=== PATIENT | male | born 1980 | race Caucasian/White ===

== ENCOUNTER 2018-04-19 20:32 | Emergency (ER) | payer OTHER, MEDICARE ==
[~2018-04-19] VITALS: Ht 182.9 cm; Wt 120.2 kg
[~2018-04-19 20:32] MED LIST: COLACE100 M1 PO; CYMBALTA60 M1 PO; MARI INH; NEXIUM40 M1 PO; OXYCODONE HCL30 M1 PO; OXYCONTIN60 M1 PO; PEPCID20 M1 PO; PROCHLORPERAZIN10 MG PO; RW; TIZANIDINE HCL4 M1 PO; XANAX1 M1 PO; XTAMPZA ER36 MG PO
--- NOTE | 2018-04-19 21:26 | ED GENERAL ADULT ---
History of Present Illness General Chief Complaint: General Adult Stated Complaint: "I WAS STUNG BY A BEE SUNDAY AND MY LEG SWOLLEN Source: patient Exam Limitations: no limitations Vital Signs & Intake/Output Vital Signs & Intake/Output Vital Signs Date Time Temp Pulse Resp B/P B/P Pulse O2 O2 Flow FiO2 Mean Ox Delivery Rate 04/19 2241 97.6 118 18 122/84 98 Room Air 04/19 2045 100.7 128 20 137/89 98 Room Air ED Intake and Output 04/20 0000 04/19 1200 Intake Total Output Total Balance Patient 265 lb Weight Weight Reported by Patient Measurement Method Allergies Coded Allergies: Penicillins (U 05/28/17) Sulfa (Sulfonamide Antibiotics) (UNKNOWN 05/28/17) cephalexin (UNKNOWN 05/28/17) theophylline (UNKNOWN 05/28/17) NSAIDS (Non-Steroidal Anti-Inflamma (Intermediate, PEPTIC ULCER DISEASE 05/28/17 ) prednisone (Intermediate, PEPTIC ULCER DISEASE 05/28/17) Reconcile Medications Cannabis (Marijuana Oil) 1 amp AMP 1 A INH PAIN (Reported) Docusate Sodium (Colace) 100 MG CAPSULE 1 CAP PO BID PRN CONSTIPATION hold for loose stool Esomeprazole (Nexium) 40 MG CAPSULE.DR 1 CAP PO DAILY PUD / GERD (Reported) Famotidine (Pepcid) 20 MG TABLET 1 TAB PO BID PRN GERD (Reported) Oxycodone HCl 30 MG TABLET 1 TAB PO Q3 PRN FIBROMYALGIA / PAIN chronic pain medication, until he can be seen on sunday by his usual prescribing physician Oxycodone Myristate (Xtampza ER) 36 MG CAP.SPR.12 1 CAP PO Q12 chronic pain control (Reported) Tizanidine HCl 4 MG TABLET 1 TAB PO TID MUSCLE RELAXER (Reported) Triage Note: PT HERE WITH MULTIPLE COMPLAINTS. PT REPORTS HE WAS TUNG BY A BEE ON SUNDAY ON HIS EFT POINTERR FINGER AND IT IS STILL SWOLEEN. PT REPORTS HE WENT TO HIS PMD TODAY AND WAS PUT ON PREDNISONE ,INHALER AND ZYRTEC. PT REPORTS THAT HE NOTICED HIS LEGS ARE BECOMING SWOLLEN AND THAT HIS GRION AREA IS MORE SWOLLLEN THAN USUAL. Triage Nurses Notes Reviewed? yes Onset: Abrupt Duration: day(s): Timing: recent history Injury Environment: home HPI: 37-year-old male comes into emergency room for further evaluation of multiple complaints. Patient reports that 2 days ago this past Sunday he was stung by a bee in his left hand. He reports that he went to the walk-in clinic earlier today. He was having some associated wheezing. He was started on prednisone. He reports now has swelling to his right leg down onto his abdomen. Feels weak. (Mj Boogie) Past History Travel History Traveled to [place] past 21 day No Medical History Any Pertinent Medical History? see below for history Neurological: UNSPECIFIED CONNECTIVE TISSUE DISORDER EENT: NONE Cardiovascular: NONE Respiratory: NONE Gastrointestinal: GERD, PEPTIC ULCER DISEAS GASTROPARESIS (on narcs) Hepatic: cholelithiasis (prob incidental), fatty liver Renal: NONE Musculoskeletal: chronic back pain, fibromyalgia, chronic pain syndrome Psychiatric: anxiety, opioid dependence Endocrine: obesity Blood Disorders: NONE Cancer(s): NONE UI UX ENGINEER/Reproductive: NONE History of MRSA: No History of VRE: No History of CDIFF: No Surgical History Surgical History: non-contributory Psychosocial History Services at Home None What is your primary language Ecuadorean Tobacco Use: Current Daily Use Daily Tobacco Use Amount/Type: =< 4 Cigarettes daily ETOH Use: denies use Illicit Drug Use: denies illicit drug use Family History Family History, If Any: MOTHER (*Hx GBD, PUD, GERD). , Age 63; Cause: Cancer of unknown origin. FATHER (in SNF with debilitating neurologic condition; *hx PUD & GERD). Age 73. Hx Contributory? No (Mj Boogie) Review of Systems Review of Systems Constitutional: Reports: see HPI. EENTM: Reports: no symptoms. Respiratory: Reports: no symptoms. Cardiovascular: Reports: no symptoms. GI: Reports: no symptoms. Genitourinary: Reports: no symptoms. Musculoskeletal: Reports: see HPI. Skin: Reports: see HPI. Neurological/Psychological: Reports: no symptoms. Hematologic/Endocrine: Reports: no symptoms. Immunologic/Allergic: Reports: see HPI. All Other Systems: Reviewed and Negative (Mj Boogie) Physical Exam Physical Exam General Appearance: well developed/nourished, no apparent distress, alert, awake Head: atraumatic, normal appearance Eyes: Bilateral: normal appearance. Ears, Nose, Throat: normal ENT inspection, hearing grossly normal Neck: normal inspection Respiratory: no respiratory distress, wheezing Cardiovascular: regular rate/rhythm Gastrointestinal: soft, non-tender, NO SWELLING APPRECIATED IN GENITALIA Back: normal inspection Extremities: normal inspection, normal range of motion, no edema, NO APPRECIABLE DIFFERENCE IN SWELLING TO BILATERAL LEGS, NO ERYTHEMA, NO WARMTH, Neurologic/Psych: awake, alert, oriented x 3, normal gait Skin: intact, normal color Core Measures ACS in differential dx? No CVA/TIA Diagnosis: No Sepsis Present: No Sepsis Focused Exam Completed? No (Nael HOWARD,Mj) Progress Differential Diagnoses I considered the following diagnoses in my evaluation of the patient: DVT, allergic reaction, kidney failure, liver failure, Plan of Care: Orders Procedure Date/time Status US-UNILATERAL VENOUS DOPPLER 04/19 2118 Active COMPREHENSIVE METABOLIC PANEL 04/19 2118 Complete CBC WITHOUT DIFFERENTIAL 04/19 2118 Complete Laboratory Tests 04/19/182133: CBC w Diff NO MAN DIFF REQ, RBC 4.77, MCV 84.6, MCH 28.4, MCHC 33.6, RDW 14.4, MPV 7.5, Gran % 88.5 H, Lymphocytes % 8.5 L, Monocytes % 2.4, Eosinophils % 0.3, Basophils % 0.3, Absolute Granulocytes 8.3 H, Absolute Lymphocytes 0.8 L, Absolute Monocytes 0.2, Absolute Eosinophils 0, Absolute Basophils 0 04/19/182130: Anion Gap 9, Estimated GFR > 60, BUN/Creatinine Ratio 13.3, Glucose 134 H, Calcium 9.2, Total Bilirubin 0.3, AST 48, ALT 88 H, Alkaline Phosphatase 88, Total Protein 7.3, Albumin 4.4, Globulin 2.9, Albumin/Globulin Ratio 1.5 Diagnostic Imaging: Viewed by Me: Radiology Read. Discussed w/RAD: Radiology Read. Radiology Impression: PATIENT: JUNIOR DÍAZ PRESENT AGE: 37 PATIENT ACCOUNT NO: [id number] : 80 LOCATION: [facility] ORDERING PHYSICIAN: Mj HOWARD SERVICE DATE: 04/19/18-2117 EXAM TYPE : RAD - XRY-CHEST XRAY, TWO VIEWS EXAMINATION: XR CHEST CLINICAL INFORMATION: Cough and wheezing COMPARISON: None TECHNIQUE: 2 views of the chest were obtained. FINDINGS: No significant abnormality is noted involving the heart, lungs, mediastinum, bony thorax or soft tissues. IMPRESSION: Unremarkable examination. DICTATED BY: Joseph Lozano MD DATE/TIME DICTATED:04/19/182143 CAMERA ENGINEER:NORM DATE/TIME TRANSCRIBED:04/19/182143 CONFIDENTIAL, DO NOT COPY WITHOUT APPROPRIATE AUTHORIZATION. <Electronically signed in Other Vendor System> SIGNED BY: Joseph Lozano MD 04/19/182148 Initial ED EKG: none (Nael HOWARD,Mj) Departure Departure Disposition: HOME OR SELF CARE Condition: Stable Clinical Impression Primary Impression: Right leg swelling Referrals: Joseph De La Cruz MD (PCP/Family) Additional Instructions: Follow-up with her general practitioner Sunday. Call Central scheduling for outpatient ultrasound. Return if any concerns worsening symptoms. Please go over all results of today's visit with your primary care doctor. Contact your primary care doctor to let them know you were here in the emergency room. There may be nonspecific findings which may not be related to your visit today here in the emergency room but may require further evaluation and chronic monitoring by your primary care doctor. If you had a laceration today the chance of foreign body always remains. You should follow-up with your primary care doctor for recheck in 3-5 days for a wound check. If you had an x-ray done there is a chance that a fracture could have been missed on initial read and you should follow-up with your primary care doctor for repeat x-rays if symptoms persist. If your blood pressure was elevated here in the emergency room please have rechecked by [facility] primary care doctor within the next 48. If you were prescribed a narcotic here in the emergency room or any type of controlled substances you're not allowed to drive while taking this medication or operate any type of heavy machinery. Narcotics can make you feel lightheaded dizziness nausea and can cause constipation. You may need to nut picker a stool softener. Thank you for choosing [facility] emergency room. Please return to the emergency room immediately if you have any other concerns worsening of symptoms. Departure Forms: Customer Survey General Discharge Information Comments 04/19/2018 11:48:30 PM Patient clinically looks well. In no apparent distress. Nontoxic-appearing. Patient complains of swelling but there is no visible swelling that I can appreciate is different. Blood work within normal limits. An ultrasound had been ordered on the patient's right leg however ultrasound left without doing the order. THEY were contacted but still left. Ultrasound was ordered at 9:18 PM. Patient was given a slip for outpatient ultrasound. Due to the fact that I cannot see any visible swelling on exam I feel that is reasonable for the patient to wait until tomorrow. Return if any other concerns worsening symptoms. He does not appear to have any signs of anaphylactic shock. Do not feel that there is any correlation with the bee sting. Some mild wheezing on exam but patient has a history of asthma and is a smoker. He is in no respiratory distress. No tongue swelling. Clinically there is no signs of infection. Patient had a low-grade temp on he came in but repeat temperature was normal. (Mj Boogie) PA/DETAILER Co-Sign Statement Statement: ED Attending supervision documentation- [] I saw and evaluated the patient. I have also reviewed all the pertinent lab results and diagnostic results. I agree with the findings and the plan of care as documented in the PA's/DETAILER's documentation. [x] I have reviewed the ED Record and agree with the PA's/DETAILER's documentation. [] Additions or exceptions (if any) to the PAs/DETAILER's note and plan are summarized below: [] (Farhat ANDRADE,Bernardo Kelly) Critical Care Note Critical Care Note Critical Care Time: non-applicable (Mj Boogie)
--- NOTE | 2018-04-19 21:49 | RADIOLOGY REPORT ---
EXAMINATION: XR CHEST CLINICAL INFORMATION: Cough and wheezing COMPARISON: None TECHNIQUE: 2 views of the chest were obtained. FINDINGS: No significant abnormality is noted involving the heart, lungs, mediastinum, bony thorax or soft tissues. IMPRESSION: Unremarkable examination.
[2018-04-19 21:51] LABS: ABSOLUTE BASOPHIL COUNT 0 /CUMM (0.0-0.2); ABSOLUTE EOSINOPHIL COUNT 0 /CUMM (0.0-0.7); ABSOLUTE GRANULOCYTE CT 8.3 /CUMM (1.4-6.5); ABSOLUTE LYMPH COUNT 0.8 /CUMM (1.2-3.4); ABSOLUTE MONOCYTE COUNT 0.2 /CUMM (0.10-0.60); BASOPHIL % 0.3 % (0.0-2.0); EOSINOPHIL % 0.3 % (0-5); HEMATOCRIT 40.3 % (42-52); MEAN CORPUSCULAR HGB 28.4 PG (27.0-31.0); MEAN CORPUSCULAR HGB CONC 33.6 G/DL (33.0-37.0); MEAN CORPUSCULAR VOLUME 84.6 FL (80.0-94.0); MEAN PLATELET VOLUME 7.5 FL (7.4-10.4); PLATELET COUNT 293 /CUMM (130-400); RBC DISTRIBUTION WIDTH 14.4 % (11.5-14.5); RED BLOOD CELL CT 4.77 /CUMM (4.70-6.10); WHITE BLOOD CELL COUNT 9.4 /CUMM (4.8-10.8)
[2018-04-19 21:54] LABS: GRANULOCYTE % 88.5 % (42.2-75.2)
[2018-04-19 22:41] VITALS: BP 122/84
== END 2018-04-19 22:43 ==
LOC: ERH 20:32
PROVIDERS: Physician Assistant Medical
DX: M79.89 Other specified soft tissue disorders (principal); K21.9 Gastro-esophageal reflux disease without esophagitis; K27.9 Peptic ulcer, site unspecified, unspecified as acute or chronic, without hemorrhage or perforation; K76.0 Fatty (change of) liver, not elsewhere classified; F41.9 Anxiety disorder, unspecified; E66.9 Obesity, unspecified; F11.20 Opioid dependence, uncomplicated
CPT/HCPCS: 71046